=== PATIENT | female | born 2000 | race Caucasian/White ===

== ENCOUNTER 2023-08-14 10:20 | Emergency (ER) | payer OTHER ==
[~2023-08-14] VITALS: Ht 149.9 cm; Wt 68.0 kg
[2023-08-14 10:38] VITALS: O2SAT 100
[2023-08-14] MEDS ORDERED: IBUP-2030 PO (11:18)
[2023-08-14 11:27] VITALS: BP 132/57; PULSE 88; RESP 16; TEMP 98.6
== END 2023-08-14 12:00 | disposition home or self-care (01) ==
LOC: ER 10:20
DX: S93.402A Sprain of unspecified ligament of left ankle, initial encounter (principal); W01.0XXA Fall on same level from slipping, tripping and stumbling without subsequent striking against object, initial encounter; Y93.89 Activity, other specified; Y92.89 Other specified places as the place of occurrence of the external cause; Y99.8 Other external cause status
CPT/HCPCS: 73610; 99283; Z7610